=== PATIENT | female | born 1975 | race Caucasian/White ===

== ENCOUNTER 2016-09-05 19:17 | Emergency (ER) | payer OTHER ==
[~2016-09-05] VITALS: Ht 160 cm; Wt 74.3 kg
[~2016-09-05 19:17] MED LIST: META800 PO; TRAM50 PO; Z.0.NO CURRENT MEDS
[2016-09-05 19:27] VITALS: BP 134/94; PULSE 100; RESP 14; TEMP 98.3; O2SAT 99
[2016-09-05] MEDS ORDERED: BACT800T5 PO (23:07)
--- NOTE | 2016-09-05 23:08 | PD ---
HPI Chief Complaint: Skin Problem Time Seen by Provider: 22:57 Travel History International Travel<30 days: No Contact w/Intl Traveler<30days: No Traveled to known affect area: No History of Present Illness HPI This 41-year-old female noted a red area on the anterior portion of her left lower leg earlier today. He is somewhat uncomfortable. It was quite red earlier and has faded somewhat. There is a central area that is slightly white. She did not see anything bite her. She does have a history of varicose veins PFSH Past Medical History Musculoskeletal: Yes (l knee surgery) Tetanus Vaccination: > 5 Years Influenza Vaccination: No ?: Not LMP: on it Social History Alcohol Use: No Tobacco Use: No Substance Use: No Allergies-Medications (Allergen,Severity, Reaction): Coded Allergies: Aspirin (Verified Allergy, Severe, NOSE BLEED, 09/01/11) Reported Meds & Prescriptions Reported Meds & Active Scripts Active No Active Prescriptions or Reported Medications Review of Systems General / Constitutional: No: Fever, Chills Eyes: No: Diploplia, Blurred Vision HENT: No: Headaches, Vertigo Cardiovascular: No: Chest Pain or Discomfort, Palpitations Respiratory: No: Cough, Shortness of Breath Gastrointestinal: No: Vomiting Genitourinary: No: Urgency, Frequency Musculoskeletal: No: Myalgias, Arthralgias Skin: Positive Rash, Positive Lumps Neurologic: No: Weakness, Dizziness Endocrine: No: Heat Intolerance Hematologic/Lymphatic: No: Easy Bruising Physical Exam Narrative GENERAL: [-] SKIN: Focused skin assessment warm/dry. On the anterior portion of the lower leg just below the knee is a area of erythema which is about 3 cm in diameter. There is a central area which is olimpia. HEAD: Atraumatic. Normocephalic. EYES: Pupils equal and round. No scleral icterus. No injection or drainage. ENT: No nasal bleeding or discharge. Mucous membranes pink and moist. NECK: Trachea midline. No JVD. . MUSCULOSKELETAL: No obvious deformities. No clubbing. No cyanosis. No edema. NEUROLOGICAL: Awake and alert. No obvious cranial nerve deficits. Motor grossly within normal limits. Normal speech. PSYCHIATRIC: Appropriate mood and affect; insight and judgment normal. Data Data Last Documented VS Vital Signs Date Time Temp Pulse Resp B/P Pulse Ox O2 Delivery O2 Flow Rate FiO2 09/05/16 19:27 98.3 100 14 134/94 99 MDM Medical Decision Making Medical Screen Exam Complete: Yes Emergency Medical Condition: Yes Medical Record Reviewed: Yes Differential Diagnosis Differential includes spider bite, cellulitis, superficial phlebitis Narrative Course This is not suspicious for the pain colitis as it is all anterior to the tibia. I am going to put her on Bactrim for possible cellulitis is stable for discharge Diagnosis Primary Impression: Cellulitis of left anterior lower leg Scripts Sulfamethoxazole-Trimethoprim (Bactrim DS)800-160 Mg Tab1 Tab PO BID #14 TAB Ref 0 Prov:Fabricio Bojorquez MD 09/05/16 Disposition: DISCHARGE HOME Condition: Stable Fbaricio Bojorquez MD Sep 05, 2016 23:08
[2016-09-05] MEDS ORDERED: SULFAMETHOXAZOLE-TRIMETHOPRIM DS 800-160 MG TAB PO ONE (23:15)
== END 2016-09-05 23:22 | disposition home or self-care (01) ==
LOC: PHED 19:17
DX: L03.116 Cellulitis of left lower limb (principal)
CPT/HCPCS: 99283

== ENCOUNTER 2016-09-20 15:26 | Emergency (ER) | payer OTHER ==
[~2016-09-20] VITALS: Ht 160 cm; Wt 74.6 kg
[~2016-09-20 15:26] MED LIST changes: +BACT800T5 PO; -META800 PO; -TRAM50 PO; -Z.0.NO CURRENT MEDS
[2016-09-20 15:36] VITALS: PULSE 98; RESP 16; TEMP 98.9; O2SAT 99
--- NOTE | 2016-09-20 15:50 | PD ---
HPI Chief Complaint: Skin Problem Time Seen by Provider: 15:50 Travel History International Travel<30 days: No Contact w/Intl Traveler<30days: No Traveled to known affect area: No History of Present Illness HPI 41-year-old female presents to the emergency department for evaluation of left leg redness, swelling and pain. The patient was seen here in our emergency department 2.5 weeks ago for the same complaint and was started on Bactrim. States that she took the Bactrim as prescribed and some of the swelling reduced however the area of erythema persisted. States that yesterday the pain worsened. Denies any injury or trauma to the leg. States she does have a history of varicose veins in this left leg. Denies any fever, chills, nausea, vomiting, numbness or tingling, weakness. No other complaints. PFSH Past Medical History Musculoskeletal: Yes (l knee surgery) Influenza Vaccination: No ?: Not LMP: 2 WEEKS Social History Alcohol Use: No Tobacco Use: No Substance Use: No Allergies-Medications (Allergen,Severity, Reaction): Coded Allergies: Aspirin (Verified Allergy, Severe, NOSE BLEED, 09/20/16) Reported Meds & Prescriptions Reported Meds & Active Scripts Active Xarelto (Rivaroxaban) 15 Mg Tab 15 Mg PO Q12HR 21 Days Review of Systems Except as stated in HPI: all other systems reviewed are Neg Physical Exam Narrative GENERAL: Well-nourished and well-developed pleasant female patient in no acute distress who is nontoxic appearing. SKIN: Warm and dry. HEAD: Normocephalic and atraumatic. EYES: No injection, drainage, or hyphema noted. PERRLA. EOMI. ENT: No nasal drainage noted. Oropharynx is clear. NECK: Supple and the trachea is midline. CARDIOVASCULAR: Regular rate and rhythm. RESPIRATORY: Breath sounds are equal bilaterally with no accessory muscle use, wheezing, rhonchi, or crackles. GASTROINTESTINAL: Abdomen is soft, non-tender, and nondistended. MUSCULOSKELETAL: Left lower anterior medial leg, just below the knee with about 7 cm area of erythema and warmth with tenderness to palpation. There is a varicose vein that travels along this area of her leg as well. No obvious deformities, cyanosis, or ecchymosis is present throughout the upper and lower extremities. Patient has full range of motion without any signs of neurovascular compromise. DP pulses are 2+ bilaterally. NEUROLOGICAL: Awake, alert, and oriented. Normal speech and gait. Cranial nerves are grossly intact. Data Data Last Documented VS Vital Signs Date Time Temp Pulse Resp B/P Pulse Ox O2 Delivery O2 Flow Rate FiO2 09/20/16 15:36 98.9 98 16 99 Orders Us Leg Venous Doppler (09/20/16 ) MDM Medical Decision Making Medical Screen Exam Complete: Yes Emergency Medical Condition: Yes Differential Diagnosis Superficial thrombophlebitis versus superficial blood clot versus DVT versus cellulitis Narrative Course 41-year-old female presents to the emergency department for evaluation of redness and swelling to left lower leg. Patient is afebrile, vital signs are stable. She was seen here in our ED 2.5 weeks ago for the same thing and given Bactrim however the symptoms have persisted. I suspect this is a superficial thrombophlebitis. We'll do an ultrasound of the left lower extremity to rule out DVT. Ultrasound imaging shows occlusive thrombus within the left saphenous vein, no DVT. I discussed findings with my attending physician Dr. Villasenor. We agree that due to the duration of the patient's symptoms and how symptomatic she is that she should be placed on anticoagulation. The patient will be prescribed Xarelto. I did discuss with the patient the risks associated with this medication. The patient does not currently have a PCP and is advised to make an appointment as soon as possible but should she not have a doctor to see her in office she is instructed to return here to our ED 10 days from now for a repeat ultrasound. I have prescribed only the first 21 days of Xarelto at this time. Discussed supportive care with the patient and signs and symptoms of when to return to the emergency department. I discussed the case with my attending physician Dr. Villasenor who is aware of the patients history, physical examination findings, and treatment plan. Diagnosis Primary Impression: Superficial vein thrombosis Referrals: Primary Care Physician Patient Instructions: Blood Thinners (ED), General Instructions, Superficial Thrombophlebitis (ED) Additional Instructions: Apply warm compresses. Take [id number] Tylenol as directed on the box as needed for pain. Follow-up with your Primary Care Physician or return to the emergency department in 10 days for repeat ultrasound. Return to the ED for any acute worsening of symptoms such as worsening swelling , pain, chest pain, shortness of breath, bloody or black stools, excessive bleeding. Med/Other Pt SpecificInfo: Prescription(s) given Scripts Rivaroxaban (Xarelto)15 Mg Tab15 Mg PO Q12HR 21 Days Ref 0 Prov:Yolanda Villasenor MD 09/20/16 Disposition: 01 DISCHARGE HOME Condition: Stable Davida Pal September 20, 2016 15:50
--- NOTE | 2016-09-20 16:52 | RADHPO ---
EXAM DATE/TIME: 09/20/2016 16:24 [facility] COMPARISON: No previous studies available for comparison. INDICATIONS : Left leg swelling. MEDICAL HISTORY : Left leg swelling. SURGICAL HISTORY : None. Left knee. ENCOUNTER: Initial ACUITY: 3 weeks PAIN SCORE: 7/10 LOCATION: Left leg. TECHNIQUE: Venous ultrasound of the leg was performed from the inguinal ligament to the proximal calf. Real-claudia e, color Doppler and spectral tracing, compression and augmentation techniques were used. FINDINGS: There is normal compressibility of the deep venous system from the inguinal region to the proximal ca lf. No echogenic clot is seen in the lumen of the common femoral, femoral, popliteal, and posterior tibial veins. There is a normal response of the venous system to proximal and distal augmentation an d respiration. Occlusive thrombus is noted within the saphenous vein. CONCLUSION: 1. No evidence of deep venous thrombosis within the lower extremity. 2. Occlusive thrombus within the left saphenous vein. Poncho Jaimes MD on September 20, 2016 at 16:49 Board Certified Radiologist. This report was verified electronically.
[2016-09-20] MEDS ORDERED: XARE15TA PO (17:18)
== END 2016-09-20 17:28 | disposition home or self-care (01) ==
LOC: PHEFT 15:26
DX: I82.812 Embolism and thrombosis of superficial veins of left lower extremity (principal)
CPT/HCPCS: 93971

== ENCOUNTER 2016-09-30 06:21 | Emergency (ER) | payer OTHER ==
[~2016-09-30] VITALS: Ht 160 cm; Wt 74.2 kg
[~2016-09-30 06:21] MED LIST changes: -BACT800T5 PO; +XARE15TA PO
[2016-09-30 06:31] VITALS: BP 111/70; PULSE 76; RESP 12; TEMP 98.5; O2SAT 100
[2016-09-30 06:39] VITALS: BP 111/70; PULSE 76; RESP 18; TEMP 98.5; O2SAT 99
--- NOTE | 2016-09-30 06:52 | PD ---
HPI Chief Complaint: Pain: Acute or Chronic Time Seen by Provider: 06:47 Travel History International Travel<30 days: No Contact w/Intl Traveler<30days: No Traveled to known affect area: No History of Present Illness HPI 41 year-old female presents to the emergency department for 10 day recheck for left lower extremity saphenous vein thrombosis. Patient was felt to need anticoagulation was started on Xarelto with prescription for 21 days and recommendation for ten-day recheck an ultrasound. Patient states she's tolerated the medication well. Continues to have an area of tenderness to the proximal medial left lower leg. No upper leg pain or redness or swelling. No fever or chills. No shortness of breath no pleuritic chest pain no chest pain. No increased bruising no epistaxis gum bleeding hemoptysis hematemesis coffee- ground emesis melena hematochezia or hematuria. Patient voicing no concerns. Left lower extremity discomfort is rated as 4/10 in intensity. PFSH Past Medical History Narrative Medical Left superficial/saphenous vein thrombosis Hx Anticoagulant Therapy: Yes Diminished Hearing: No Deep Vein Thrombosis: Yes Musculoskeletal: Yes (l knee surgery) Immunizations Current: Yes Tetanus Vaccination: Unknown Influenza Vaccination: No ?: Not LMP: August Social History Alcohol Use: No Tobacco Use: No Substance Use: No Allergies-Medications (Allergen,Severity, Reaction): Coded Allergies: Aspirin (Verified Allergy, Severe, NOSE BLEED, 09/30/16) Reported Meds & Prescriptions Reported Meds & Active Scripts Active Xarelto (Rivaroxaban) 15 Mg Tab 15 Mg PO Q12HR 21 Days Review of Systems Except as stated in HPI: all other systems reviewed are Neg Physical Exam Narrative GENERAL: Well-developed well-nourished female in no acute distress no respiratory distress SKIN: Warm and dry. HEAD: Normocephalic. EYES: No scleral icterus. No injection or drainage. NECK: Supple, trachea midline. No JVD or lymphadenopathy. CARDIOVASCULAR: Regular rate and rhythm without murmurs, gallops, or rubs. RESPIRATORY: Breath sounds equal bilaterally. No accessory muscle use. GASTROINTESTINAL: Abdomen soft, non-tender, nondistended. MUSCULOSKELETAL: No cyanosis, or edema. Medial proximal lower leg area of superficial thrombosis and varicosity noted distally extremity is neurovascular tendon intact no erythema no increased warmth proximally no ascending erythema warmth or tenderness BACK: Nontender without obvious deformity. No CVA tenderness. Data Data Last Documented VS Vital Signs Date Time Temp Pulse Resp B/P Pulse Ox O2 Delivery O2 Flow Rate FiO2 09/30/16 06:42 76 18 09/30/16 06:39 98.5 111/70 99 Orders Us Leg Venous Doppler (09/30/16 ) MDM Medical Decision Making Medical Screen Exam Complete: Yes Emergency Medical Condition: Yes Medical Record Reviewed: Yes Differential Diagnosis Superficial thrombophlebitis, DVT, musculoskeletal strain sprain, cellulitis Narrative Course Ultrasound of the left lower extremity ordered @ 0700 care signed over to Nette Jimenez MD September 30, 2016 06:52
--- NOTE | 2016-09-30 08:35 | RADHPO ---
EXAM DATE/TIME: 09/30/2016 08:10 [facility] COMPARISON: No previous studies available for comparison. INDICATIONS : Left leg swelling and pain. MEDICAL HISTORY : Deep venous thrombosis. SURGICAL HISTORY : Left knee surgery. ENCOUNTER: Initial ACUITY: 2 weeks PAIN SCORE: 3/10 LOCATION: Left leg. TECHNIQUE: Venous ultrasound of the leg was performed from the inguinal ligament to the proximal calf. Real-claudia e, color Doppler and spectral tracing, compression and augmentation techniques were used. FINDINGS: There is normal compressibility of the deep venous system from the inguinal region to the proximal ca lf. No echogenic clot is seen in the lumen of the common femoral, femoral, popliteal, and posterior tibial veins. There is a normal response of the venous system to proximal and distal augmentation an d respiration. There is however occlusive thrombus within the mid to distal portions of the greater s aphenous vein. CONCLUSION: 1. No deep venous thrombosis. 2. Occlusive thrombus again seen within the greater saphenous vein, unchanged. Donn Jimenez MD on September 30, 2016 at 8:31 Board Certified Radiologist. This report was verified electronically.
--- NOTE | 2016-09-30 08:49 | PD ---
Physical Exam Date Seen by Provider: September 30, 2016 Narrative Care was assumed from Dr. Meyers at 7 AM pending follow-up ultrasound. Patient was initially seen on September 20 and diagnosed with left saphenous vein thrombosis. She was placed on Xarelto. She was instructed to follow-up couple weeks later. She does not have a primary care physician so returned here. Data Data Last Documented VS Vital Signs Date Time Temp Pulse Resp B/P Pulse Ox O2 Delivery O2 Flow Rate FiO2 09/30/16 06:42 76 18 09/30/16 06:39 98.5 111/70 99 Orders Us Leg Venous Doppler (09/30/16 ) MDM Supervised Visit with TORITO: No Narrative Course Last Impressions Lower Extremity Ultrasound 09/30/16 0000 Signed Impressions: Service Date/Time: Friday, September 30, 2016 08:10 - CONCLUSION: 1. No deep venous thrombosis. 2. Occlusive thrombus again seen within the greater saphenous vein, unchanged. Donn Jimenez MD Diagnosis Primary Impression: Superficial vein thrombosis Referrals: [facility] 2 weeks Additional Instruction: Continue Xarelto. Follow up with the [facility]. Disposition: 01 DISCHARGE HOME Condition: Stable Geno Chisholm MD September 30, 2016 08:49
[2016-09-30] MEDS ORDERED: XARE20TA PO (09:02)
== END 2016-09-30 09:25 | disposition home or self-care (01) ==
LOC: PHED 06:21
DX: I82.91 Chronic embolism and thrombosis of unspecified vein (principal); Z79.01 Long term (current) use of anticoagulants; Z86.718 Personal history of other venous thrombosis and embolism
CPT/HCPCS: 93971

== ENCOUNTER 2017-03-06 05:55 | Inpatient (IN) | payer OTHER ==
[~2017-03-06] VITALS: Ht 160 cm; Wt 73.6 kg
[2017-03-06] VITALS (8 sets, daily range): BP systolic 89–143; BP diastolic 50–82; PULSE 73–105; RESP 18–20; TEMP 97.8–98.3; O2SAT 96–100
[~2017-03-06 05:55] MED LIST changes: +XARE20TA PO
--- NOTE | 2017-03-06 06:23 | PD ---
HPI Chief Complaint: GI Complaint Time Seen by Provider: 06:18 Travel History International Travel<30 days: No Contact w/Intl Traveler<30days: No Traveled to known affect area: No History of Present Illness HPI The patient is a 41-year-old female that complains of right upper quadrant abdominal pain for 24 hours. She has nausea, vomiting but no diarrhea. She denies any fever. The pain occasionally goes around her right scapula. She is been on Xarelto for 6 months because of DVT in the left leg. PFSH Past Medical History Hx Anticoagulant Therapy: Yes Diminished Hearing: No Deep Vein Thrombosis: Yes Musculoskeletal: Yes (l knee surgery) Immunizations Current: Yes Social History Alcohol Use: No Tobacco Use: No Substance Use: No Allergies-Medications (Allergen,Severity, Reaction): Coded Allergies: aspirin (Unverified Allergy, Severe, NOSE BLEED, 03/06/17) Reported Meds & Prescriptions Reported Meds & Active Scripts Active Xarelto (Rivaroxaban) 20 Mg Tab 20 Mg PO DAILY Review of Systems Except as stated in HPI: all other systems reviewed are Neg Physical Exam Narrative GENERAL: The patient is alert, oriented 3 in moderate apparent distress with her right upper quadrant discomfort. Her vital signs are normal. SKIN: Focused skin assessment warm/dry. HEAD: Atraumatic. Normocephalic. EYES: Pupils equal and round. No scleral icterus. No injection or drainage. ENT: No nasal bleeding or discharge. Mucous membranes pink and moist. NECK: Trachea midline. No JVD. CARDIOVASCULAR: Regular rate and rhythm. No murmur appreciated. RESPIRATORY: No accessory muscle use. Clear to auscultation. Breath sounds equal bilaterally. GASTROINTESTINAL: Abdomen soft, with tenderness to direct palpation in the right upper quadrant, nondistended. Hepatic and splenic margins not palpable. Kang's sign is negative. MUSCULOSKELETAL: No obvious deformities. No clubbing. No cyanosis. No edema. NEUROLOGICAL: Awake and alert. No obvious cranial nerve deficits. Motor grossly within normal limits. Normal speech. PSYCHIATRIC: Appropriate mood and affect; insight and judgment normal. Data Data Last Documented VS Vital Signs Date Time Temp Pulse Resp B/P (MAP) Pulse Ox O2 Delivery O2 Flow Rate FiO2 03/06/17 07:12 91 18 118/60 (79) 98 Room Air 03/06/17 06:04 98.3 Orders Orders Beta Hcg (Quant/Titer) (03/06/17 06:24) Complete Blood Count With Diff (03/06/17 06:24) Comprehensive Metabolic Panel (03/06/17 06:24) Lipase (03/06/17 06:24) Urinalysis - C+S If Indicated (03/06/17 06:24) Us Abdomen Gallbladder (03/06/17 ) Iv Access Insert/Monitor (03/06/17 06:24) Ecg Monitoring (03/06/17 06:24) Oximetry (03/06/17 06:24) Morphine Inj (Morphine Inj) (03/06/17 06:30) Ondansetron Inj (Zofran Inj) (03/06/17 06:30) Sodium Chloride 0.9% Flush (Ns Flush) (03/06/17 06:30) Ed Urine Pregnancytest Poc (03/06/17 06:24) Ct Abd/Pel W Iv Contrast(Rout) (03/06/17 ) Iohexol 350 Inj (Omnipaque 350 Inj) (03/06/17 09:16) Admit Order (Ed Use Only) (03/06/17 09:40) Piperacil-Tazo 3.375 Gm Premix (Zosyn 3. (03/06/17 09:45) Labs Laboratory Tests Test 03/06/17 06:30 White Blood Count 16.9 TH/MM3 Red Blood Count 4.74 MIL/MM3 Hemoglobin 13.4 GM/DL Hematocrit 39.4 % Mean Corpuscular Volume 83.2 FL Mean Corpuscular Hemoglobin 28.4 PG Mean Corpuscular Hemoglobin Concent 34.1 % Red Cell Distribution Width 13.1 % Platelet Count 181 TH/MM3 Mean Platelet Volume 7.8 FL Neutrophils (%) (Auto) 89.8 % Lymphocytes (%) (Auto) 3.3 % Monocytes (%) (Auto) 3.8 % Eosinophils (%) (Auto) 0.0 % Basophils (%) (Auto) 3.1 % Neutrophils # (Auto) 15.2 TH/MM3 Lymphocytes # (Auto) 0.6 TH/MM3 Monocytes # (Auto) 0.6 TH/MM3 Eosinophils # (Auto) 0.0 TH/MM3 Basophils # (Auto) 0.5 TH/MM3 CBC Comment DIFF FINAL Differential Comment Prothrombin Time 10.7 SEC Prothromb Time International Ratio 1.0 RATIO Urine Collection Type CLEAN CATCH Urine Color YELLOW Urine Turbidity CLEAR Urine pH 8.0 Urine Specific [facility] 1.022 Urine Protein TRACE mg/dL Urine Glucose (UA) NEG mg/dL Urine Ketones 15 mg/dL Urine Occult Blood TRACE Urine Nitrite NEG Urine Bilirubin NEG Urine Leukocyte Esterase NEG Urine RBC 0-3 /hpf Urine WBC 0-2 /hpf Urine Squamous Epithelial Cells 0-5 /hpf Microscopic Urinalysis Comment CULT NOT INDICATED Blood Urea Nitrogen 8 MG/DL Creatinine 0.82 MG/DL Random Glucose 155 MG/DL Total Protein 7.4 GM/DL Albumin 3.7 GM/DL Calcium Level 8.5 MG/DL Alkaline Phosphatase 56 U/L Aspartate Amino Transf (AST/SGOT) 25 U/L Alanine Aminotransferase (ALT/SGPT) 20 U/L Total Bilirubin 1.2 MG/DL Sodium Level 131 MEQ/L Potassium Level 4.4 MEQ/L Chloride Level 98 MEQ/L Carbon Dioxide Level 25.2 MEQ/L Anion Gap 8 MEQ/L Estimat Glomerular Filtration Rate 76 ML/MIN Lipase 93 U/L Human Chorionic Gonadotropin, Quant LESS THAN 1 MIU/ML MDM Medical Decision Making Medical Screen Exam Complete: Yes Emergency Medical Condition: Yes Medical Record Reviewed: Yes Differential Diagnosis Gallbladder colic, acute cholecystitis, pyelonephritis, colitis, ulcer pain, acute appendicitis, colitis Narrative Course The patient was transferred to Dr. Ochoa. Scripts Oxycodone-Acetaminophen (Oxycodone-Acetaminophen) 5-325 mg Tab 1 TAB PO Q4H Y for pain, #20 TAB Prov: Saundra Austin MD 03/07/17 Natan Emery MD Mar 06, 2017 06:23
[2017-03-06] MEDS ORDERED: ONDANSETRON HCL 4 MG/2 ML VIAL IVP ONE (06:30)
[2017-03-06] MEDS ORDERED: MORPHINE SULFATE 4 MG/ML INJ IV PUSH ONE (06:30)
[2017-03-06] MEDS ORDERED: SODIUM CHLORIDE 0.9% FLUSH 10 ML FLUSH IV FLUSH PRN ×2 (06:30→15:30)
[2017-03-06 06:47] LABS: GLUCOSE,URINE NEG (NEG); KETONE, URINE 15 mg/dL (NEG); NITRITE,URINE NEG (NEG)
[2017-03-06 06:49] LABS: AUTOMATED NEUTROPHIL # 15.2 TH/MM3 (1.8-7.7); BASOPHIL # 0.5 TH/MM3 (0-0.2); BASOPHIL % 3.1 % (0.0-2.0); BLOOD, URINE TRACE (NEG); HEMATOCRIT 39.4 % (35.0-46.0); LYMPH % 3.3 % (9.0-44.0); LYMPHOCYTE # 0.6 TH/MM3 (1.0-4.8); MEAN CELL VOLUME 83.2 FL (80.0-100.0); MEAN CORPUSCULAR HEMOGLOBIN 28.4 PG (27.0-34.0); MEAN CORPUSCULAR HGB CONC 34.1 % (32.0-36.0); MONO % 3.8 % (0.0-8.0); NEUT % 89.8 % (16.0-70.0); PLATELET COUNT 181 TH/MM3 (150-450); RED BLOOD COUNT 4.74 MIL/MM3 (4.00-5.30); RED CELL DISTRIBUTION WIDTH 13.1 % (11.6-17.2); WHITE BLOOD COUNT 16.9 TH/MM3 (4.0-11.0)
[2017-03-06 06:50] LABS: METHOD OF COLLECTION CLEAN CATCH; URINE COLOR YELLOW (YELLW/STRAW)
[2017-03-06 06:53] LABS: COMMENT (UR) CULT NOT INDICATED; CULTURE IF INDICATED CULT NOT INDICATED; RBC, URINE 0-3 /hpf (0-3); SQUAMOUS EPITHELIAL CELL URINE 0-5 /hpf (0-5); WBC, URINE 0-2 /hpf (0-5)
[2017-03-06 06:56] LABS: HEMO FLAGS DIFF FINAL
[2017-03-06 07:02] LABS: CHLORIDE 98 MEQ/L (98-107); POTASSIUM 4.4 MEQ/L (3.5-5.1); SODIUM (NA) 131 MEQ/L (136-145)
[2017-03-06 07:06] LABS: ANION GAP 8 MEQ/L (5-15); BICARBONATE 25.2 MEQ/L (21.0-32.0); BLOOD UREA NITROGEN 8 MG/DL (7-18)
[2017-03-06 07:09] LABS: ALT (GPT) 20 U/L (10-53); AST (GOT) 25 U/L (15-37); GLOMERULAR FILTRATION RATE 76 ML/MIN (>89)
[2017-03-06 07:10] LABS: TOTAL BILIRUBIN ADULT 1.2 MG/DL (0.2-1.0)
[2017-03-06 07:11] LABS: ALKALINE PHOSPHATASE 56 U/L (45-117)
[2017-03-06 07:14] LABS: BETA HCG QUANT LESS THAN 1 MIU/ML (0-5)
--- NOTE | 2017-03-06 08:46 | RADRPT ---
EXAM DATE/TIME: 03/06/2017 07:45 [facility] COMPARISON: No previous studies available for comparison. INDICATIONS : Right upper quadrant pain and nausea. MEDICAL HISTORY : DVT. SURGICAL HISTORY : Left knee surgery. ENCOUNTER: Initial ACUITY: 1 day PAIN SCORE: 3/10 LOCATION: Right upper quadrant MEASUREMENTS: LIVER: 15.5 cm length COMMON DUCT: 4 mm RIGHT KIDNEY: 10.3 x 5.0 x 4.0 cm FINDINGS: LIVER: Normal echotexture without focal lesion or ductal dilatation. COMMON DUCT: No intraluminal mass or stone visualized. GALLBLADDER: Contains no stones, demonstrates no wall thickening or pericholecystic fluid. PANCREAS: The visualized portions are within normal limits. The pancreatic duct measures approximately 2 mm. RIGHT KIDNEY: No evidence of hydronephrosis, stone, or mass. CONCLUSION: 1. No evidence of gallstones or biliary tract obstruction. 2. Minimal dilatation of the pancreatic duct a 2 mm. Gumaro Alvarez MD on March 06, 2017 at 8:44 Board Certified Radiologist. This report was verified electronically.
[2017-03-06] MEDS ORDERED: IOHEXOL 350 MG/ML 10 ML VIAL (for RAD DIAG) IVCONTRAST ONE (09:16)
--- NOTE | 2017-03-06 09:27 | RADRPT ---
EXAM DATE/TIME: 03/06/2017 09:11 [facility] COMPARISON: No previous studies available for comparison. INDICATIONS : Right upper quadrant pain and nausea. IV CONTRAST: 90 cc Omnipaque 350 (iohexol) IV ORAL CONTRAST: No oral contrast ingested. RADIATION DOSE: 11.22 CTDIvol (mGy) MEDICAL HISTORY : Deep venous thrombosis. Anticoagulant therapy. SURGICAL HISTORY : Orthopedic surgery. ENCOUNTER: Initial ACUITY: 1 day PAIN SCALE: 3/10 LOCATION: Right upper quadrant TECHNIQUE: Volumetric scanning of the abdomen and pelvis was performed. Using automated exposure control and ad justment of the mA and/or kV according to patient size, radiation dose was kept as low as reasonably achievable to obtain optimal diagnostic quality images. DICOM format image data is available electro nically for review and comparison. FINDINGS: LOWER LUNGS: The visualized lower lungs are clear. LIVER: Homogeneous density without lesion. There is no dilation of the biliary tree. No calcified gallston es. SPLEEN: Normal size without lesion. PANCREAS: Within normal limits. KIDNEYS: Normal in size and shape. There is no mass, stone or hydronephrosis. ADRENAL GLANDS: Within normal limits. VASCULAR: There is no aortic aneurysm. BOWEL/MESENTERY: The appendix is dilated and thickened with associated periappendiceal inflammation. The vessels are o therwise unremarkable. ABDOMINAL WALL: Within normal limits. RETROPERITONEUM: There is no lymphadenopathy. BLADDER: Significantly distended with urine. No wall thickening or mass. REPRODUCTIVE: 2.5 cm cyst is identified in the right adnexa. INGUINAL: There is no lymphadenopathy or hernia. MUSCULOSKELETAL: Within normal limits for patient age. CONCLUSION: 1. Non perforated acute appendicitis. 2. 2.5 cm right adnexal cyst. 3. Distended urinary bladder. Jon Estrada MD on March 06, 2017 at 9:22 Board Certified Radiologist. This report was verified electronically.
[2017-03-06] MEDS ORDERED: PIPERACIL-TAZO 3.375 GM PREMIX 50 ML IV ONE (09:45)
--- NOTE | 2017-03-06 09:46 | PD ---
Physical Exam Narrative GENERAL: Well-nourished, well-developed patient. SKIN: Warm and dry. HEAD: Normocephalic and atraumatic. EYES: No injection or drainage. ENT: No nasal drainage noted. NECK: Supple, trachea midline. CARDIOVASCULAR: Regular rate and rhythm RESPIRATORY: No increased effort. No accessory muscle use. GASTROINTESTINAL: Abdomen soft, tender in periumbilical area, nondistended. NEUROLOGICAL: Awake and alert. Motor and sensory grossly within normal limits. Normal speech. Data Data Last Documented VS Vital Signs Date Time Temp Pulse Resp B/P (MAP) Pulse Ox O2 Delivery O2 Flow Rate FiO2 03/06/17 07:12 91 18 118/60 (79) 98 Room Air 03/06/17 06:04 98.3 Orders Orders Beta Hcg (Quant/Titer) (03/06/17 06:24) Complete Blood Count With Diff (03/06/17 06:24) Comprehensive Metabolic Panel (03/06/17 06:24) Lipase (03/06/17 06:24) Urinalysis - C+S If Indicated (03/06/17 06:24) Us Abdomen Gallbladder (03/06/17 ) Iv Access Insert/Monitor (03/06/17 06:24) Ecg Monitoring (03/06/17 06:24) Oximetry (03/06/17 06:24) Morphine Inj (Morphine Inj) (03/06/17 06:30) Ondansetron Inj (Zofran Inj) (03/06/17 06:30) Sodium Chloride 0.9% Flush (Ns Flush) (03/06/17 06:30) Ed Urine Pregnancytest Poc (03/06/17 06:24) Ct Abd/Pel W Iv Contrast(Rout) (03/06/17 ) Iohexol 350 Inj (Omnipaque 350 Inj) (03/06/17 09:16) Admit Order (Ed Use Only) (03/06/17 09:40) Piperacil-Tazo 3.375 Gm Premix (Zosyn 3. (03/06/17 09:45) Labs Laboratory Tests Test 03/06/17 06:30 White Blood Count 16.9 TH/MM3 Red Blood Count 4.74 MIL/MM3 Hemoglobin 13.4 GM/DL Hematocrit 39.4 % Mean Corpuscular Volume 83.2 FL Mean Corpuscular Hemoglobin 28.4 PG Mean Corpuscular Hemoglobin Concent 34.1 % Red Cell Distribution Width 13.1 % Platelet Count 181 TH/MM3 Mean Platelet Volume 7.8 FL Neutrophils (%) (Auto) 89.8 % Lymphocytes (%) (Auto) 3.3 % Monocytes (%) (Auto) 3.8 % Eosinophils (%) (Auto) 0.0 % Basophils (%) (Auto) 3.1 % Neutrophils # (Auto) 15.2 TH/MM3 Lymphocytes # (Auto) 0.6 TH/MM3 Monocytes # (Auto) 0.6 TH/MM3 Eosinophils # (Auto) 0.0 TH/MM3 Basophils # (Auto) 0.5 TH/MM3 CBC Comment DIFF FINAL Differential Comment Urine Collection Type CLEAN CATCH Urine Color YELLOW Urine Turbidity CLEAR Urine pH 8.0 Urine Specific [facility] 1.022 Urine Protein TRACE mg/dL Urine Glucose (UA) NEG mg/dL Urine Ketones 15 mg/dL Urine Occult Blood TRACE Urine Nitrite NEG Urine Bilirubin NEG Urine Leukocyte Esterase NEG Urine RBC 0-3 /hpf Urine WBC 0-2 /hpf Urine Squamous Epithelial Cells 0-5 /hpf Microscopic Urinalysis Comment CULT NOT INDICATED Blood Urea Nitrogen 8 MG/DL Creatinine 0.82 MG/DL Random Glucose 155 MG/DL Total Protein 7.4 GM/DL Albumin 3.7 GM/DL Calcium Level 8.5 MG/DL Alkaline Phosphatase 56 U/L Aspartate Amino Transf (AST/SGOT) 25 U/L Alanine Aminotransferase (ALT/SGPT) 20 U/L Total Bilirubin 1.2 MG/DL Sodium Level 131 MEQ/L Potassium Level 4.4 MEQ/L Chloride Level 98 MEQ/L Carbon Dioxide Level 25.2 MEQ/L Anion Gap 8 MEQ/L Estimat Glomerular Filtration Rate 76 ML/MIN Lipase 93 U/L Human Chorionic Gonadotropin, Quant LESS THAN 1 MIU/ML [facility] Supervised Visit with TORITO: No Interpretation(s) Last 24 hours Impressions Gall Bladder Ultrasound 03/06/17 0000 Signed Impressions: Service Date/Time: Monday, March 06, 2017 07:45 - CONCLUSION: 1. No evidence of gallstones or biliary tract obstruction. 2. Minimal dilatation of the pancreatic duct a 2 mm. Gumaro Alvarez MD Abdomen/Pelvis CT 03/06/17 0000 Signed Impressions: Service Date/Time: Nissa, March 06, 2017 09:11 - CONCLUSION: 1. Non perforated acute appendicitis. 2. 2.5 cm right adnexal cyst. 3. Distended urinary bladder. Jon Estrada MD Narrative Course Signed over to me to follow gallbladder ultrasound and reevaluate. Patient has leukocytosis and ultrasound without emergent findings. Given location of pain will add on CT to rule out early appendicitis CT with appendicitis, patient updated and will discuss with surgeon. Patient states that took Xarelto last Sunday evening and is on this for a DVT that they are still working her up for why she got that. Physician Communication Physician Communication dr moncada states to transfer to [facility] for surgery given she is on Xarelto and [facility] Diagnosis Primary Impression: Appendicitis Qualified Codes: K35.80 - Unspecified acute appendicitis Areli Alba MD Mar 06, 2017 09:46
[2017-03-06 11:04] LABS: PROTHROMBIN TIME - PATIENT 10.7 SEC (9.8-11.6)
[2017-03-06] MEDS ORDERED: CHLORHEXIDINE GLUCONATE 2 % 1 PACK (2 CLOTHS) TOPICAL PRN (12:15)
[2017-03-06] MEDS ORDERED: LACTATED RINGER'S 1000 ML IV PRN (12:15)
[2017-03-06] MEDS ORDERED: INSULIN HUMAN REGULAR 1,000 UNITS/10 ML VIAL SQ PRN (12:15)
[2017-03-06] MEDS ORDERED: SODIUM CHLORID 0.9% 500 ML IV PRN (12:15)
[2017-03-06] MEDS ORDERED: POVIDONE IODINE 5% (ANTISEPSIS KIT) 4 APPLICATIONS EACH NARE PRN (12:15)
[2017-03-06] MEDS ORDERED: METOPROLOL TARTRATE 25 MG TAB PO PRN (12:15)
[2017-03-06] MEDS ORDERED: ACETAMINOPHEN 1000 MG/100 ML 100 ML IV ONE (12:59)
[2017-03-06] MEDS ORDERED: BUPIVACAINE/EPINEPHRINE 0.5% 50 ML VIAL ONE (13:01)
[2017-03-06] MEDS ORDERED: LACTATED RINGER'S 1000 ML INJ 2,000 ML IV ONE (13:56)
[2017-03-06] MEDS ORDERED: ONDANSETRON HCL 4 MG/2 ML VIAL IV PUSH ONE (13:56)
[2017-03-06] MEDS ORDERED: GLYCOPYRROLATE 1 MG/5 ML SYRINGE IV PUSH ONE (13:56)
[2017-03-06] MEDS ORDERED: ROCURONIUM INJ 50 MG/5 ML SYRINGE IV PUSH ONE (13:56)
[2017-03-06] MEDS ORDERED: PROPOFOL 200 MG/20 ML AMP IV ONE (13:56)
[2017-03-06] MEDS ORDERED: PHENYLEPH/NS 1000 MCG/10 ML SYR IV ONE (13:56)
[2017-03-06] MEDS ORDERED: NEOSTIGMINE 3 MG/3 ML SYR IV ONE (13:56)
[2017-03-06] MEDS ORDERED: SUCCINYLCHOLINE CHLORIDE 100 MG/5 ML SYRINGE IV PUSH ONE (13:56)
[2017-03-06] MEDS ORDERED: DEXAMETHASONE SOD PHOS 4 MG/ML VIAL IV ONE (13:56)
[2017-03-06] MEDS ORDERED: LIDOCAINE HCL 1% PF 5 ML AMPULE OTHER ONE (13:56)
[2017-03-06] MEDS ORDERED: DO NOT ADM ANY ANTICOAGULANT DRUGS PRN (14:58)
[2017-03-06] MEDS ORDERED: HYDROmorphone HCL PF 1 MG/ML VIAL IV PUSH PRN (15:30)
[2017-03-06] MEDS ORDERED: NALOXONE HCL 0.4 MG/ML AMP IV PUSH PRN (15:30)
[2017-03-06] MEDS ORDERED: Post-op Orders (for Pharmacy) MISC XX ONE (15:30)
[2017-03-06] MEDS ORDERED: ONDANSETRON HCL 4 MG/2 ML VIAL IV PUSH PRN (15:30)
[2017-03-06] MEDS ORDERED: oxyCODONE/ACETAMINOPHEN 5 MG/325 MG TAB PO PRN (15:30)
[2017-03-06] MEDS ORDERED: *PROMETHAZINE 25 MG/ML VIAL PERIprocedural use ONLY ONE (15:33)
--- NOTE | 2017-03-06 15:45 | MH ---
cc: SAUNDRA DIETZ MD DATE OF ADMISSION: 03/06/2017 ADMITTING DIAGNOSIS: Acute purulent appendicitis, hypocoagulable state. HISTORY OF PRESENT DISEASE: This 41-year-old female presented initially to the emergency room at [place] with right mid abdominal to right upper quadrant pain with some guarding. The patient has had this pain since yesterday morning, nausea, vomiting accompany it. The patient was worked up, was found to have acute appendicitis and is now being transferred to [facility] for surgery in the face of the fact the patient is on Xarelto with DVT and is hypocoagulable, despite the fact that she requires surgery, in anticipation a slightly bigger surgery than just appendectomy. PAST MEDICAL HISTORY: Deep venous thrombosis about six months ago. PAST SURGICAL HISTORY: Knee surgery many years ago before. ALLERGIES: NONE. MEDICATIONS: Xarelto for the last five months. It should be noted that the cause of her DVT was never really elucidated. SOCIAL HISTORY: The patient does not smoke or drink. PHYSICAL EXAMINATION: Reveals a pleasant 41 year-old lady in no acute distress. HEENT: Normocephalic. No trauma to the head. Pupils equal and reactive. Extraocular movements intact. NECK: Supple. Good pulses, no bruits. CHEST: Clear. Bilateral breath sounds. HEART: Regular rhythm. ABDOMEN: Soft, hypoactive bowel sounds. She is tender mid abdomen in the right upper quadrant as well as right mid abdomen area. She is not tender in the right lower quadrant but this is probably due to the position of the appendix high up. The patient has no rebound, no guarding at this time and she received pain medicine. PELVIC: Stable. EXTREMITIES: Within normal limits. BACK: Normal. IMPRESSION: The patient is a 41 year-old female with severe abdominal pain, now subsiding, consistent with acute appendicitis and high lying appendix. The patient is on Xarelto. She will be transferred to [facility] for [facility]. Saundra MCKEON /3:21 PM /3:27 PM
[2017-03-06] MEDS: PIPERACIL-TAZO 3.375 GM PREMIX 50 ML IV SCH (17:21)
[2017-03-06] MEDS: SODIUM CHLOR 0.9% 1000 ML INJ 1,000 ML IV SCH (17:21)
--- NOTE | 2017-03-06 18:25 | MP ---
cc: LAURA DIETZ MD DATE OF SURGERY: 03/06/2017 PREOPERATIVE DIAGNOSIS: Acute purulent appendicitis. POSTOPERATIVE DIAGNOSIS: Acute purulent appendicitis. OPERATION: Laparoscopic cholecystectomy SURGEON: Laura Dietz MD. ANESTHESIA General. BLOOD LOSS 50 CC. PROCEDURE: The patient was prepped and draped usual fashion. Small supraumbilical incision was made and under direct vision fascia was opened and then Carolina cannula inserted, abdomen was insufflated with CO2 and the patient positioned in slight Trendelenburg with left tilt. A 30 degree camera is inserted and then under direct vision the suprapubic port is placed after infiltrating and 1% Xylocaine and then left lower quadrant port is placed. When both ports are in position the abdomen is visualized. The tubes appeared to be somewhat inflamed and there is some fluid in the pelvis, the right ovary is slightly larger with some cystic areas on it. The rest of the abdominal exam is negative. Cecum is very high riding in the right upper quadrant and abutting the liver essentially, therefore the patient is taken out of the Trendelenburg to see better. The appendix is stuck to the lateral abdominal wall and to some soft tissue surrounding the liver and it is very tedious process to get it off of it. Once this was done is grasped with alligator clamps, elevated, the opening is made in the mesoappendix at the base of the appendix and the Endo-JENNIFER with a white load is fired across here and then the mesentery is divided in the same fashion and appendix delivered to subumbilical incision using EndoCatch bag. The area irrigated copious with saline and meticulous hemostasis assured with a few Ligaclips in the face. In fact the patient is on Xarelto. The area irrigated once more with saline once I was sure there is no bleeding, the ports were removed, abdomen was closed with #1 Vicryl of 4-0 Monocryl. The patient tolerated the procedure well. Laura GARCIA/jay /3:25 PM /6:09 PM
[2017-03-06] MEDS: SODIUM CHLORIDE 0.9% FLUSH 10 ML FLUSH IV FLUSH SCH (21:00)
[2017-03-06] MEDS: FAMOTIDINE 20 MG TAB PO SCH (21:56)
[2017-03-06] MEDS: DOCUSATE SODIUM 100 MG CAP PO SCH (21:56)
[2017-03-07 00:41] VITALS: BP 100/50
[2017-03-07 00:55] VITALS: BP 91/45; PULSE 71; RESP 16; TEMP 98.6; O2SAT 96
[2017-03-07] MEDS: PIPERACIL-TAZO 3.375 GM PREMIX 50 ML IV SCH ×2 (02:34→09:03)
[2017-03-07] MEDS: SODIUM CHLOR 0.9% 1000 ML INJ 1,000 ML IV SCH (04:41)
[2017-03-07 05:02] VITALS: BP 103/52; PULSE 80; RESP 18; TEMP 98.5; O2SAT 93
[2017-03-07 08:00] VITALS: BP 113/61; PULSE 85; RESP 19; TEMP 98.1; O2SAT 96
[2017-03-07 08:11] LABS: BASOPHIL % 0.2 % (0.0-2.0); HEMATOCRIT 33.4 % (35.0-46.0); HEMO FLAGS DIFF FINAL; LYMPH % 10.5 % (9.0-44.0); LYMPHOCYTE # 1.3 TH/MM3 (1.0-4.8); MEAN CELL VOLUME 86.5 FL (80.0-100.0); MEAN CORPUSCULAR HEMOGLOBIN 28.6 PG (27.0-34.0); MONO % 3.7 % (0.0-8.0); NEUT % 85.6 % (16.0-70.0); PLATELET COUNT 155 TH/MM3 (150-450); RED BLOOD COUNT 3.86 MIL/MM3 (4.00-5.30); RED CELL DISTRIBUTION WIDTH 13.7 % (11.6-17.2); WHITE BLOOD COUNT 12.8 TH/MM3 (4.0-11.0)
[2017-03-07] MEDS: SODIUM CHLORIDE 0.9% FLUSH 10 ML FLUSH IV FLUSH SCH (09:00)
[2017-03-07] MEDS: DOCUSATE SODIUM 100 MG CAP PO SCH (09:03)
[2017-03-07] MEDS: FAMOTIDINE 20 MG TAB PO SCH (09:03)
[2017-03-07] MEDS ORDERED: OXYC1TAB63 PO (10:20)
== END 2017-03-07 11:59 | disposition home or self-care (01) | DRG 343 ==
LOC: PHED 05:55 → PHEDA 09:42 → N07B 11:13 → HSDI 11:49 → N07A 16:19
PROVIDERS: ADMIT Surgery; ATTEND Surgery
PROC: 0DTJ4ZZ Resection of Appendix, Percutaneous Endoscopic Approach (ICD-10-PCS; principal; 2017-03-06 12:40)
DX: K35.80 Unspecified acute appendicitis (principal); R79.1 Abnormal coagulation profile; Z86.718 Personal history of other venous thrombosis and embolism; Z79.01 Long term (current) use of anticoagulants
CPT/HCPCS: 74177; 76705; 80053; 81001; 83690; 84702; 84703; 85025; 85610; 88304; J0131; J0330; J1100; J2270; J2370; J2405; J2543; J2550; J2710; J3010; J7030; J7120; Q9967